=== PATIENT | male | born 1975 | race African-American/Black ===

== ENCOUNTER 2016-07-31 04:03 | Inpatient (IN) | payer MEDICARE, OTHER ==
--- NOTE | ~2016-07-31 | HP ---
History And Physical [address] [place]. [address] NAME: ИВАН ALBA : 73 STATUS : ADM IN [facility]#: [id number] AGE: 41 ADM/REG DATE : 07/31/16 MR#: [id number] REPORT SERV DATE: 07/31/16 DICTATED BY: ALDO KHALIL DATE: 07/31/16 REPORT STATUS : Draft TRANSCRIBED BY: MODL DATE: 07/31/16 DATE OF ADMISSION: 07/31/2016 CHIEF COMPLAINT: Shortness of breath. HISTORY OF PRESENT ILLNESS: This is a 41-year-old gentleman with history of schizophrenia, nonischemic cardiomyopathy with ejection fraction of 15-20%, as well as diabetes and COPD presenting with a shortness of breath. The patient was actually initially brought to the ER with complaints of testicular pain, but it turns out that the patient had significant swelling of his testicles and when he was brought to the ER the patient was in respiratory distress. Upon questioning, the patient reports that he has been swelling up for the past one week and the shortness of breath really started on the way to the ER. The patient is known historically to be poorly compliant with medical therapy in part due to his schizophrenia and even today when I asked the patient reports that he takes his medications whenever he can. In the ER, the patient was found to be afebrile and hemodynamically stable. The patient's breathing actually improved significantly with just 2 L of oxygen per nasal cannula. Initial lab evaluation was all fairly benign except for a BNP of 1130. Chest x-ray showed vascular congestion. Internal Medicine consultation was requested for admission the patient for further evaluation and care. REVIEW OF SYSTEMS: The patient denies any fevers or chills. Also, 14-point review of systems reviewed and negative other than mentioned above. MEDICATIONS: The list is still pending at this time. PAST MEDICAL HISTORY: 1. Nonischemic cardiomyopathy with baseline ejection fraction of 15% to 20%. The patient is status post pacemaker and AICD implantation. The patient follows with Dr. Vazquez. 2. The patient also has moderate to severe diastolic congestive heart failure. 3. COPD. 4. Diabetes type 2. 5. Schizophrenia. PAST SURGICAL HISTORY: AICD and pacemaker implantation. FAMILY HISTORY: Diabetes. SOCIAL HISTORY: The patient smokes occasionally and also consumes alcohol occasionally. The patient otherwise denies any use of illicit drugs. PHYSICAL EXAMINATION: VITAL SIGNS: Temperature 97.7, blood pressure 174/155, pulse 98, respiratory rate of 25, saturating 98% on 2 L of oxygen. History And Physical [address] [address] NAME: ИВАН ALBA : 73 STATUS : ADM IN PAT#: [id number] AGE: 41 ADM/REG DATE : 07/31/16 MR#: [id number] REPORT SERV DATE: 07/31/16 DICTATED BY: ALDO KHALIL DATE: 07/31/16 REPORT STATUS : Draft TRANSCRIBED BY: MATT DATE: 07/31/16 CONSTITUTIONAL: On physical exam, the patient is alert and oriented x3 with no focal neurologic deficits. GENERAL: The patient is awake, does not appear to be in acute distress, and he is cooperative. NECK: No JVD. No lymphadenopathy. Normal thyroid. CHEST: No midline sternotomy scar and no tenderness to palpation. LUNGS: Clear to auscultation bilaterally with fairly normal respiratory effort on 2 L of oxygen per nasal cannula. CARDIOVASCULAR: Regular rate and rhythm with no murmurs, rubs, or gallops, and PMI is nondisplaced. ABDOMEN: Soft, nontender, with active bowel sounds and no organomegaly. EXTREMITIES: The patient has 2+ bilateral lower extremity pitting edema as well as extremity swollen testicles. The patient otherwise has normal distal pulses and no calf tenderness. SKIN: Clean, dry, warm, and intact. LABORATORY DATA: Sodium is 145, potassium 3.6, chloride 110, BUN 21, creatinine 0.92, glucose 154, calcium 8.3, magnesium 1.6. LFTs and lipase are within normal limits. White blood cell count is 7.3, hemoglobin 12.3, platelets 266. INR is 1.5, troponin is 0.07, BNP is 1130.6. Urinalysis is still pending. Chest x-ray is personally interpreted and it shows pulmonary edema. ASSESSMENT: This is a 41-year-old gentleman with history of combined systolic and diastolic congestive heart failure, presenting with a congestive heart failure exacerbation. 1. Congestive heart failure exacerbation, with baseline combined systolic and diastolic congestive heart failure. Baseline ejection fraction is 15-20%. The patient follows with Dr. Vazquez. 2. Schizophrenia affecting the patient's compliance to medication therapy. 3. Diabetes type 2. 4. COPD. PLAN: The plan is to admit the patient under telemetry monitoring. The patient will be given oxygen support and bronchodilator therapy as needed. The patient will be treated with IV Lasix diuresis. In's and out's will be closely monitored as well as daily weights, daily electrolytes, and renal function. I will also go ahead and recheck his echocardiogram this time around. For the rest of stable past medical conditions, including diabetes, schizophrenia, COPD et al, I will continue home medications when the list becomes available. Standard DVT prophylaxis. The patient is full code at this time. [facility]/MATT Aldo Khalil MD / [id number] History And Physical [address] [address] NAME: ИВАН ALBA : 73 STATUS : ADM IN PAT#: [id number] AGE: 41 ADM/REG DATE : 07/31/16 MR#: [id number] REPORT SERV DATE: 07/31/16 DICTATED BY: ALDO KHALIL DATE: 07/31/16 REPORT STATUS : Draft TRANSCRIBED BY: MATT DATE: 07/31/16 CC: Radha Leon Jr., M.D.
--- NOTE | ~2016-07-31 | DS ---
Discharge Summary [facility] [address] [place]. [address] NAME: ИВАН ALBA : 73 STATUS : DIS IN PAT#: [id number] AGE: 41 ADM/REG DATE : 07/31/16 MR#: [id number] REPORT SERV DATE: 08/03/16 DICTATED BY: LORI CARDOZO DATE: 08/02/16 REPORT STATUS : Draft TRANSCRIBED BY: MODJasper DATE: 08/02/16 ADMISSION DATE: 07/31/2016 DISCHARGE DATE: 08/02/2016 DIAGNOSES OF DISCHARGE: 1. Acute on chronic systolic/diastolic congestive heart failure, resolved. 2. Nonischemic cardiomyopathy with ejection fraction around 30% to 35% by echo done during this hospitalization. 3. Hypertension, uncontrolled on admission. 4. Diabetes type 2, insulin dependent. 5. Obesity. 6. Schizophrenia. 7. Medical noncompliance. CONSULTANTS ON THE CASE: None. PROCEDURE DONE DURING THIS HOSPITALIZATION: None. TESTS DONE DURING THIS HOSPITALIZATION: Include 2D echo performed on 08/02/2016 showing improvement in the cardiac ejection fraction around 30% to 35%. Bilateral venous duplex ultrasound of the bilateral lower extremity showing negative bilateral lower extremity Doppler ultrasound. His troponins on 07/31/2016 was 0.07. His TSH was 0.68. His BNP was 1073.7, hemoglobin A1c 7.3, white count was 8.5, hemoglobin 13.3, hematocrit 40.7, and platelets are 299. INR 1.5. His UA has been negative. The chest x-ray that has been performed on 07/31/2016 show congestion with mild interstitial edema and cardiomegaly. HOSPITAL COURSE: This is a very pleasant 41 years old gentleman. 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 He did have a PCI to the mid LAD on the 06/24/2016. He has hypertension. He has had history of diabetes type 2 as well as schizophrenia which has made treating his ischemic cardiomyopathy challenging in the past as well as medical noncompliance, presenting to [facility] and admitted on 07/31/2016 with shortness of breath. The patient does have also history of COPD and tobacco abuse, and he has been admitted initially with CHF exacerbation and anasarca. The patient is known as I said, historically to be a poor compliant with medical treatment, and he says that he takes medications whenever he can. The patient has been admitted to hospitalist service and treated for acute on chronic CHF exacerbation. For further details, please see history and physical of Dr. Long Carlson. The patient has been placed on oxygen. He has been placed on aggressive diuretic treatment. Has been placed on Lasix drip with very good urine output, and he has been started on beta nurys, nitrates, lisinopril, the patient was supposed to be taking at home. He did have an echo which showed significant improvement of the ejection fraction as well as a bilateral lower extremity ultrasound that Discharge Summary [address] [place]. [address] NAME: ИВАН ALBA : 73 STATUS : DIS IN PAT#: [id number] AGE: 41 ADM/REG DATE : 07/31/16 MR#: [id number] REPORT SERV DATE: 08/03/16 DICTATED BY: LORI CARDOZO DATE: 08/02/16 REPORT STATUS : Draft TRANSCRIBED BY: MATT DATE: 08/02/16 ruled out DVT. On 08/02/2016, the patient has been ready for discharge. The patient did not require any oxygen. He has been changed subsequently to oral Demadex. His beta nurys and OMER has been continued as well as his Levemir and metformin. The patient is going to be discharged to home with home health with recommendation to follow up with his primary care provider in one week after discharge and followup appointment with Dr. Vazquez, Cardiology, in one week after discharge. MEDICATIONS AT DISCHARGE: Would include aspirin 325 p.o. daily, Lipitor 40 mg at bedtime, Coreg 25 p.o. daily, Levemir 20 units at bedtime, lisinopril 40 mg p.o. daily, Imdur 20 mg p.o. b.i.d., potassium chloride 20 p.o. b.i.d., Risperdal 2 mg at bedtime, Demadex 20 mg p.o. daily, and resume potassium chloride 20 mEq p.o. b.i.d. as well as metformin 1000 p.o. b.i.d. that has been discussed extensively with the patient. All the questions have been answered in full. I have spent more than 30 minutes at discharging the patient, Fortunato Hobson, medication reconciliation, discharge summary, discharge instructions, written prescriptions as well. CF/MODL Lori Cardozo M.D. / [id number] CC: Radha Huerta Jr., M.D.
[2016-07-31 03:16] LABS: BASOPHILS 0.7 %; BASOPHILS ABSOLUTE 0.05 10/3/uL (0.0-0.16); EOSINOPHILS 3.7 %; EOSINOPHILS ABSOLUTE 0.27 10/3/uL (0.0-0.53); HEMOGLOBIN 12.3 g/dL (13.6-17.8); IMMATURE GRANULOCYTES 0.3 %; IMMATURE GRANULOCYTES ABSOLUTE 0.02 10/3/uL (0.0-0.11); LYMPHOCYTES 26.4 %; LYMPHOCYTES ABSOLUTE 1.93 10/3/uL (0.67-4.30); MANUAL DIFF NO %; MEAN CORPUS HGB CONC 32.4 g/dL (32.0-36.0); MEAN CORPUSCULAR HEMOGLOB 25.8 pg (26.0-34.0); MEAN CORPUSCULAR VOLUME 79.8 fL (80-100); MEAN PLATELET VOLUME 9.3 fL (9.2-13.0); MONOCYTES 11.4 %; MONOCYTES ABSOLUTE 0.83 10/3/uL (0.21-1.20); NEUTROPHILS 57.5 %; NEUTROPHILS ABSOLUTE 4.21 10/3/uL (2.02-8.40); PLATELET COUNT 266 10/3/uL (150-400); RBC DISTRIBUTION WIDTH 18.3 % (12.0-16.0); RED CELL COUNT 4.76 10/6/uL (4.7-6.1); WHITE BLOOD CELLS 7.3 10/3/uL (4.5-10.5)
[2016-07-31 03:23] LABS: INTERNATIONAL NORMAL RATI 1.5 UNITS (-); PARTIAL THROMBO TIME 34.3 SEC (22.5-37.2); PROTIME (NOT ORD) 17.6 SEC (12.0-14.5)
[2016-07-31 03:32] LABS: A/G RATIO 0.8 (0.7-1.9); ALBUMIN 2.9 G/DL (3.5-5.0); ALKALINE PHOSPHATASE 155 U/L (45-117); BUN (BLOOD UREA NITROGEN) 21 MG/DL (6-23); CALCIUM, SERUM 8.3 MG/DL (8.5-10.4); CHLORIDE, SERUM 110 MMOL/L (96-112); CO2 (CARBON DIOXIDE) 27 MMOL/L (24-34); CREATININE 0.92 MG/DL (0.70-1.30); GFR AFRICAN AMERICAN 118 ML/MIN (>=60); GFR NON AFRICAN AMERICAN 102 ML/MIN (>=60); GLOBULIN 3.8 G/DL (2.5-4.1); GLUCOSE, SERUM 154 MG/DL (60-99); POTASSIUM, SERUM 3.6 MMOL/L (3.5-5.3); SGOT(AST) 30 U/L (5-40); SGPT(ALT) 29 U/L (5-65); SODIUM, SERUM 145 MMOL/L (135-148); TOTAL PROTEIN 6.7 G/DL (6.0-8.5)
[2016-07-31 03:47] LABS: TROPONIN I 0.07 NG/ML (<0.05)
[~2016-07-31 04:03] MED LIST: *UNABLE1; ASA5GR PO; CRESTOR PO; GLUCOPHAGE1000 MG PO; HYDROCHLOROT25 MG PO; L20 PO; LEVEMFLXPN SC; LIPITOR40 PO; LISINOPRIL PO; LOP25 PO; METFORMIN PO; NATURE'S OPH; POTASSIUM PO; PRIN10 PO; RISP2 PO; ZESTRIL40 MG PO; [UNRECOGNIZED DRUG - REMARK]
[2016-07-31 04:38] LABS: ASCORBIC ACID (UR NOT ORDER) 20 (NEG); BILIRUBIN, URINE NEGATIVE (NEG); ER URINALYSIS TAT 1 Hrs 27 Mins; KETONE, URINE NEGATIVE (NEG); LEUKOCYTE ESTERASE(NOT OR NEG (NEG); NITRITE (URINE) NEG (NEG); WBC (NOT ORDERED) (RFLEX) 4 (0-5)
[2016-07-31 12:31] LABS: BASOPHILS 0.8 %; BASOPHILS ABSOLUTE 0.06 10/3/uL (0.0-0.16); EOSINOPHILS 3.6 %; EOSINOPHILS ABSOLUTE 0.27 10/3/uL (0.0-0.53); HEMATOCRIT 37.3 % (40.0-51.0); HEMOGLOBIN 11.8 g/dL (13.6-17.8); IMMATURE GRANULOCYTES 0.1 %; IMMATURE GRANULOCYTES ABSOLUTE 0.01 10/3/uL (0.0-0.11); LYMPHOCYTES 31.6 %; LYMPHOCYTES ABSOLUTE 2.34 10/3/uL (0.67-4.30); MEAN CORPUS HGB CONC 31.6 g/dL (32.0-36.0); MEAN CORPUSCULAR HEMOGLOB 25.1 pg (26.0-34.0); MEAN CORPUSCULAR VOLUME 79.2 fL (80-100); MEAN PLATELET VOLUME 9.3 fL (9.2-13.0); MONOCYTES 10.8 %; NEUTROPHILS 53.1 %; NEUTROPHILS ABSOLUTE 3.92 10/3/uL (2.02-8.40); PLATELET COUNT 272 10/3/uL (150-400); RBC DISTRIBUTION WIDTH 18.5 % (12.0-16.0); RED CELL COUNT 4.71 10/6/uL (4.7-6.1); WHITE BLOOD CELLS 7.4 10/3/uL (4.5-10.5)
[2016-07-31 12:32] LABS: MANUAL DIFF NO %
[2016-07-31 12:51] LABS: BUN (BLOOD UREA NITROGEN) 21 MG/DL (6-23); CALCIUM, SERUM 8.1 MG/DL (8.5-10.4); CHLORIDE, SERUM 107 MMOL/L (96-112); CO2 (CARBON DIOXIDE) 30 MMOL/L (24-34); CREATININE 0.87 MG/DL (0.70-1.30); GFR AFRICAN AMERICAN 123 ML/MIN (>=60); GFR NON AFRICAN AMERICAN 106 ML/MIN (>=60); GLUCOSE, SERUM 124 MG/DL (60-99); POTASSIUM, SERUM 3.5 MMOL/L (3.5-5.3); SODIUM, SERUM 143 MMOL/L (135-148)
[2016-07-31 12:52] LABS: TROPONIN I 0.07 NG/ML (<0.05); ULTRASENSITIVE TSH 0.444 MCIU/ML (0.358-3.740)
[2016-07-31 12:56] LABS: B NATRIURETIC PEPTIDE (BNP) 1073.7 PG/ML (< 100.0)
[2016-08-01 06:03] LABS: BASOPHILS 0.4 %; BASOPHILS ABSOLUTE 0.03 10/3/uL (0.0-0.16); EOSINOPHILS 4.6 %; EOSINOPHILS ABSOLUTE 0.31 10/3/uL (0.0-0.53); HEMATOCRIT 39.3 % (40.0-51.0); HEMOGLOBIN 12.8 g/dL (13.6-17.8); IMMATURE GRANULOCYTES 0.1 %; IMMATURE GRANULOCYTES ABSOLUTE 0.01 10/3/uL (0.0-0.11); LYMPHOCYTES 27.4 %; LYMPHOCYTES ABSOLUTE 1.86 10/3/uL (0.67-4.30); MEAN CORPUS HGB CONC 32.6 g/dL (32.0-36.0); MEAN CORPUSCULAR HEMOGLOB 25.7 pg (26.0-34.0); MEAN CORPUSCULAR VOLUME 78.9 fL (80-100); MONOCYTES 10.3 %; NEUTROPHILS 57.2 %; NEUTROPHILS ABSOLUTE 3.87 10/3/uL (2.02-8.40); PLATELET COUNT 258 10/3/uL (150-400); RBC DISTRIBUTION WIDTH 18.3 % (12.0-16.0); RED CELL COUNT 4.98 10/6/uL (4.7-6.1); WHITE BLOOD CELLS 6.8 10/3/uL (4.5-10.5)
[2016-08-01 06:05] LABS: MANUAL DIFF NO %
[2016-08-01 06:27] LABS: % IRON SAT 8 % (20-50); BUN (BLOOD UREA NITROGEN) 18 MG/DL (6-23); CALCIUM, SERUM 8.4 MG/DL (8.5-10.4); CHLORIDE, SERUM 101 MMOL/L (96-112); CO2 (CARBON DIOXIDE) 34 MMOL/L (24-34); CREATININE 0.89 MG/DL (0.70-1.30); FERRITIN 66 NG/ML (26-388); GFR AFRICAN AMERICAN 122 ML/MIN (>=60); GFR NON AFRICAN AMERICAN 105 ML/MIN (>=60); IRON BINDING CAPACITY 349 MCG/DL (250-450); IRON, SERUM 28 MCG/DL (35-150); POTASSIUM, SERUM 3.4 MMOL/L (3.5-5.3); SODIUM, SERUM 142 MMOL/L (135-148)
[2016-08-01 06:28] LABS: GLUCOSE, SERUM 86 MG/DL (60-99); ULTRASENSITIVE TSH 0.681 MCIU/ML (0.358-3.740)
[2016-08-01 09:02] LABS: GLYCOHEMOGLOBIN (HbA1c) 7.3 % (4.7-6.1)
[2016-08-02 05:25] LABS: BASOPHILS 0.5 %; BASOPHILS ABSOLUTE 0.04 10/3/uL (0.0-0.16); EOSINOPHILS 4.9 %; EOSINOPHILS ABSOLUTE 0.42 10/3/uL (0.0-0.53); HEMATOCRIT 40.7 % (40.0-51.0); HEMOGLOBIN 13.3 g/dL (13.6-17.8); IMMATURE GRANULOCYTES 0.2 %; IMMATURE GRANULOCYTES ABSOLUTE 0.02 10/3/uL (0.0-0.11); LYMPHOCYTES 23.3 %; LYMPHOCYTES ABSOLUTE 1.99 10/3/uL (0.67-4.30); MANUAL DIFF NO %; MEAN CORPUS HGB CONC 32.7 g/dL (32.0-36.0); MEAN CORPUSCULAR HEMOGLOB 25.9 pg (26.0-34.0); MEAN CORPUSCULAR VOLUME 79.2 fL (80-100); MEAN PLATELET VOLUME 9.5 fL (9.2-13.0); MONOCYTES 10.6 %; NEUTROPHILS 60.5 %; NEUTROPHILS ABSOLUTE 5.16 10/3/uL (2.02-8.40); PLATELET COUNT 299 10/3/uL (150-400); RBC DISTRIBUTION WIDTH 18.2 % (12.0-16.0); RED CELL COUNT 5.14 10/6/uL (4.7-6.1); WHITE BLOOD CELLS 8.5 10/3/uL (4.5-10.5)
[2016-08-02 05:33] LABS: BUN (BLOOD UREA NITROGEN) 24 MG/DL (6-23); CALCIUM, SERUM 9.1 MG/DL (8.5-10.4); CHLORIDE, SERUM 96 MMOL/L (96-112); CO2 (CARBON DIOXIDE) 39 MMOL/L (24-34); CREATININE 0.96 MG/DL (0.70-1.30); GFR AFRICAN AMERICAN 113 ML/MIN (>=60); GFR NON AFRICAN AMERICAN 97 ML/MIN (>=60); GLUCOSE, SERUM 216 MG/DL (60-99); POTASSIUM, SERUM 3.6 MMOL/L (3.5-5.3); SODIUM, SERUM 141 MMOL/L (135-148)
[2016-08-02] MEDS ORDERED: COREG25 PO (12:02)
[2016-08-02] MEDS ORDERED: LISINOPRIL40 MG PO (12:03)
[2016-08-02] MEDS ORDERED: IMDUR30 PO (12:04)
[2016-08-02] MEDS ORDERED: DEMA20 PO (12:05)
[2016-08-02] MEDS ORDERED: KDUR20 PO (12:05)
[2017-01-02] MEDS ORDERED: L20 PO (12:25)
[2017-01-02] MEDS ORDERED: MONOKET20 PO (12:26)
[2017-01-05] MEDS ORDERED: COREG6 PO (12:50)
[2017-01-05] MEDS ORDERED: PRIN10 PO (12:51)
== END 2016-08-02 18:44 | disposition home health service (06) | DRG 292 ==
LOC: ER 04:03 → 5NO 04:29
PROVIDERS: Internal Medicine; Nurse Practitioner; Nurse Practitioner Family
DX: I11.0 Hypertensive heart disease with heart failure (principal); Z68.42 Body mass index [BMI] 45.0-49.9, adult; I50.43 Acute on chronic combined systolic (congestive) and diastolic (congestive) heart failure; E11.9 Type 2 diabetes mellitus without complications; Z79.4 Long term (current) use of insulin; E66.9 Obesity, unspecified; Z91.14 Patient's other noncompliance with medication regimen; F20.9 Schizophrenia, unspecified; J44.9 Chronic obstructive pulmonary disease, unspecified; F17.210 Nicotine dependence, cigarettes, uncomplicated; E88.09 Other disorders of plasma-protein metabolism, not elsewhere classified; Z23 Encounter for immunization
CPT/HCPCS: 71010; 80048; 80053; 81001; 82728; 82962; 83036; 83540; 83550; 83690; 83735; 83880; 84443; 84484; 85025; 85610; 85730; 90686; 93005; 93306; 93970; 94640; 96374; 99285; A9270-GY; G0008; J1940

== ENCOUNTER 2016-09-07 23:58 | Emergency (ER) | payer MEDICARE, OTHER ==
[~2016-09-07 23:58] MED LIST changes: +COREG25 PO; +DEMA20 PO; +IMDUR30 PO; +KDUR20 PO; +LISINOPRIL40 MG PO
[2016-09-08 01:32] LABS: BASOPHILS 0.8 %; BASOPHILS ABSOLUTE 0.06 10/3/uL (0.0-0.16); EOSINOPHILS 4.4 %; EOSINOPHILS ABSOLUTE 0.34 10/3/uL (0.0-0.53); ER CBC TAT 0 Hrs 15 Mins; HEMOGLOBIN 11.5 g/dL (13.6-17.8); IMMATURE GRANULOCYTES 0.4 %; IMMATURE GRANULOCYTES ABSOLUTE 0.03 10/3/uL (0.0-0.11); LYMPHOCYTES 18.2 %; LYMPHOCYTES ABSOLUTE 1.41 10/3/uL (0.67-4.30); MANUAL DIFF NO %; MEAN CORPUS HGB CONC 31.9 g/dL (32.0-36.0); MEAN CORPUSCULAR HEMOGLOB 25.2 pg (26.0-34.0); MEAN CORPUSCULAR VOLUME 78.9 fL (80-100); MEAN PLATELET VOLUME 8.7 fL (9.2-13.0); MONOCYTES 14.2 %; PLATELET COUNT 244 10/3/uL (150-400); RBC DISTRIBUTION WIDTH 17.5 % (12.0-16.0); RED CELL COUNT 4.56 10/6/uL (4.7-6.1); WHITE BLOOD CELLS 7.7 10/3/uL (4.5-10.5)
[2016-09-08] MEDS ORDERED: VENTOLIN HFA INH (01:50)
[2016-09-08] MEDS ORDERED: LISINOPRIL PO (01:54)
[2016-09-08] MEDS ORDERED: COREG (01:57)
[2016-09-08 01:59] LABS: CALCIUM, SERUM 8.3 MG/DL (8.5-10.4); CHLORIDE, SERUM 109 MMOL/L (96-112); CREATININE 0.96 MG/DL (0.70-1.30); GFR AFRICAN AMERICAN 113 ML/MIN (>=60); GFR NON AFRICAN AMERICAN 97 ML/MIN (>=60); POTASSIUM, SERUM 3.5 MMOL/L (3.5-5.3); SODIUM, SERUM 145 MMOL/L (135-148)
[2016-09-08] MEDS ORDERED: L20 PO (01:59)
[2016-09-08] MEDS ORDERED: ASPIRIN PO (02:00)
[2016-09-08 02:01] LABS: BUN (BLOOD UREA NITROGEN) 19 MG/DL (6-23); CO2 (CARBON DIOXIDE) 30 MMOL/L (24-34); GLUCOSE, SERUM 94 MG/DL (60-99)
[2016-09-08] MEDS ORDERED: HYDRALAZINE (02:01)
[2016-09-08] MEDS ORDERED: NOVOLOG SC (02:02)
[2016-09-08 02:29] LABS: ASCORBIC ACID (UR NOT ORDER) NEG (NEG); BILIRUBIN, URINE NEGATIVE (NEG); ER URINALYSIS TAT 0 Hrs 00 Mins; KETONE, URINE NEGATIVE (NEG); LEUKOCYTE ESTERASE(NOT OR NEG (NEG); NITRITE (URINE) NEG (NEG); WBC (NOT ORDERED) (RFLEX) < 1 (0-5)
[2017-01-02] MEDS ORDERED: L20 PO (12:25)
[2017-01-02] MEDS ORDERED: MONOKET20 PO (12:26)
[2017-01-05] MEDS ORDERED: COREG6 PO (12:50)
[2017-01-05] MEDS ORDERED: PRIN10 PO (12:51)
== END 2016-09-08 02:55 | disposition home or self-care (01) ==
LOC: ER 23:58
PROVIDERS: Emergency Medicine
DX: I11.0 Hypertensive heart disease with heart failure (principal); I50.9 Heart failure, unspecified; J44.9 Chronic obstructive pulmonary disease, unspecified; F17.200 Nicotine dependence, unspecified, uncomplicated; F20.9 Schizophrenia, unspecified; Z95.810 Presence of automatic (implantable) cardiac defibrillator; Z79.899 Other long term (current) drug therapy
CPT/HCPCS: 71010; 80048; 81001; 83880; 85025; 99285; J1940

== ENCOUNTER 2016-09-08 09:59 | Emergency (ER) | payer MEDICARE, OTHER ==
[~2016-09-08 09:59] MED LIST changes: +ASPIRIN PO; +COREG; +HYDRALAZINE; +NOVOLOG SC; +VENTOLIN HFA INH
[2017-01-02] MEDS ORDERED: L20 PO (12:25)
[2017-01-02] MEDS ORDERED: MONOKET20 PO (12:26)
[2017-01-05] MEDS ORDERED: COREG6 PO (12:50)
[2017-01-05] MEDS ORDERED: PRIN10 PO (12:51)
== END 2016-09-08 11:41 | disposition home or self-care (01) ==
LOC: ER 09:59
DX: N50.89 Other specified disorders of the male genital organs (principal); I11.0 Hypertensive heart disease with heart failure; I50.9 Heart failure, unspecified; E11.9 Type 2 diabetes mellitus without complications; F20.9 Schizophrenia, unspecified; Z79.899 Other long term (current) drug therapy
CPT/HCPCS: 76870; 99283; A9270-GY

== ENCOUNTER 2016-10-05 15:32 | Inpatient (IN) | payer MEDICARE, OTHER ==
--- NOTE | ~2016-10-05 | HP ---
History And Physical [address] [place]. [address] NAME: ИВАН ALBA : 73 STATUS : ADM IN [facility]#: [id number] AGE: 41 ADM/REG DATE : 10/05/16 MR#: [id number] REPORT SERV DATE: 10/06/16 DICTATED BY: ALDO KHALIL DATE: 10/05/16 REPORT STATUS : Draft TRANSCRIBED BY: MODL DATE: 10/05/16 DATE OF ADMISSION: 10/05/2016 CHIEF COMPLAINT: Increasing edema and shortness of breath. HISTORY OF PRESENT ILLNESS: This is a 41-year-old gentleman with a known history of systolic and diastolic congestive heart failure as well as COPD, presenting with increasing peripheral edema and shortness of breath. Please note, the patient also has a history of schizophrenia and he is known to be noncompliant to medical therapy. Also with the schizophrenia, the patient is a rather poor historian. The patient reports that he had some kind of trouble following up with his PCP, where he was not able to get appointments on time. As a result, the patient ran out of his medications and he has been off meds for the past two weeks. The patient reports that he has been compliant with his medications up until about two weeks ago. Over the past two weeks, the patient had worsening peripheral edema and shortness of breath. The patient decided to come to the ER for further evaluation and care. Of note, it appears that the patient has had frequent ER visitations and thus I am not sure if the patient has developed this peripheral edema and shortness of breath rather acutely or if it is just one of his episodes. In the ER, the patient was found to be quite hypertensive with blood pressures 160s/100s. The patient was otherwise actually fairly stable. Initial lab evaluation was fairly benign, but overall the patient was quite edematous to the point of anasarca and his chest x-ray confirmed quite extensive congestive heart failure changes. Internal Medicine consultation was requested for admission of the patient for further evaluation and care. REVIEW OF SYSTEMS: The patient denies any fevers or chills. Also, 14-point review of systems reviewed and negative other than mentioned above. MEDICATIONS: The list is still pending at this time. PAST MEDICAL HISTORY: 1. Baseline systolic congestive heart failure with ejection fraction of 30% to 35%, nonischemic. The patient follows with Dr. Vazquez and he has a pacemaker and AICD. 2. The patient also had moderate to severe diastolic congestive heart failure. 3. Hypertension. 4. Insulin-dependent diabetes, type 2. 5. Chronic obstructive pulmonary disease. 6. Schizophrenia. 7. Known to be noncompliant in part due to the schizophrenia. PAST SURGICAL HISTORY: 1. AICD. 2. Pacemaker implantation. FAMILY HISTORY: Diabetes. History And Physical [address] [address] NAME: ИВАН ALBA : 73 STATUS : ADM IN PAT#: [id number] AGE: 41 ADM/REG DATE : 10/05/16 MR#: [id number] REPORT SERV DATE: 10/06/16 DICTATED BY: ALDO KHALIL DATE: 10/05/16 REPORT STATUS : Draft TRANSCRIBED BY: MATT DATE: 10/05/16 SOCIAL HISTORY: The patient smokes and drinks occasionally, but not on daily basis. The patient denies use of any illicit drugs. The patient lives at home with his mother, niece, and nephew. The patient is alone here in the ER. PHYSICAL EXAMINATION: VITAL SIGNS: Temperature 98.6, blood pressure 158/100, pulse 101, respiratory rate is 16, and saturating 95% on room air. NEUROLOGIC: The patient is alert and oriented x3 with no focal neurologic deficits. GENERAL: The patient is awake, does not appear to be in acute distress, and he is cooperative. The patient overall has anasarca appearance with significant scrotal edema. NECK: No JVD. No lymphadenopathy. Normal thyroid. CHEST: No midline sternotomy scar and no tenderness to palpation. LUNGS: Clear to auscultation bilaterally with normal respiratory effort on room air. The patient does seem to have decreased lung volumes. CARDIOVASCULAR: Slightly tachycardic with no murmurs, rubs, or gallops, and PMI is nondisplaced. ABDOMEN: Soft, nontender, with active bowel sounds and no organomegaly. EXTREMITIES: No edema. Normal distal pulses. No calf tenderness. SKIN: Clean, dry, warm, and intact. LABORATORY DATA: Sodium is 142, potassium 3.2, chloride 105, BUN 17, creatinine 0.98, glucose 130, calcium 8.3, magnesium 1.5. White blood cell count is 7.3, hemoglobin 11.1, platelets 291. INR is 1.6, troponin is 0.09, BNP is 972.8. Chest x-ray is personally interpreted and it shows extensive congestive heart failure changes. ASSESSMENT: This is a 41-year-old gentleman with a known history of systolic congestive heart failure as well as diastolic congestive heart failure, presenting with a congestive heart failure exacerbation with anasarca. 1. Anasarca secondary to acute on chronic systolic and diastolic congestive heart failure exacerbation. The patient has nonischemic cardiomyopathy at baseline with ejection fraction of 30% to 35%. 2. Hypertension. 3. Chronic obstructive pulmonary disease. 4. Insulin-dependent diabetes type 2. 5. Schizophrenia. 6. Noncompliance, related to the schizophrenia. PLAN: My plan is to admit the patient under telemetry monitoring. The patient will be treated with aggressive IV Lasix diuresis. In's and out's will be closely monitored as well as daily weights and electrolytes as well as renal function. As the patient had a fairly recent echocardiogram couple of months ago, I will hold off on ordering a repeat echocardiogram. The patient will also be treated with cardiac supportive care to include oxygen, nitrogen, aspirin, and morphine as well as OMER inhibitor and statins. For his hypertension, the patient will also be given antihypertensives as needed and for diabetes, the patient will be placed on sliding scale. For the rest of the stable past medical conditions including schizophrenia, COPD and et al, I will continue home medications. History And Physical [address] [address] NAME: ИВАН ALBA : 73 STATUS : ADM IN PAT#: [id number] AGE: 41 ADM/REG DATE : 10/05/16 MR#: [id number] REPORT SERV DATE: 10/06/16 DICTATED BY: ALDO KHALIL DATE: 10/05/16 REPORT STATUS : Draft TRANSCRIBED BY: MATT DATE: 10/05/16 Standard DVT prophylaxis. The patient is full code at this time. [facility]/MATT Aldo Khalil MD / [id number] CC: Diana Bowers M.D.
--- NOTE | ~2016-10-05 | DS ---
Discharge Summary [facility] [address] [place]. [address] NAME: ИВАН ALBA : 73 STATUS : DIS IN PAT#: [id number] AGE: 41 ADM/REG DATE : 10/05/16 MR#: [id number] REPORT SERV DATE: 10/08/16 DICTATED BY: ALDO ALVES DATE: 10/07/16 REPORT STATUS : Draft TRANSCRIBED BY: MODL DATE: 10/07/16 ADMISSION DATE: 10/05/2016 DISCHARGE DATE: 10/07/2016 DISCHARGE DIAGNOSES: 1. Anasarca secondary to acute on chronic systolic and diastolic congestive heart failure exacerbation. 2. Baseline nonischemic cardiomyopathy with ejection fraction of 30% to 35%. 3. Hypertension. 4. Chronic obstructive pulmonary disease. 5. Insulin-dependent diabetes type 2. 6. Schizophrenia. 7. Noncompliance, related to schizophrenia. CONSULTS: None. PROCEDURES: None. HOSPITAL COURSE: This is a 41-year-old gentleman, who is well known to our hospitalist service for his frequent hospitalizations, who was admitted to the hospital with acute on chronic systolic congestive heart failure exacerbation. For details, please refer to my own H and P. In summary, the patient was admitted and was given aggressive IV Lasix diuresis with good response. The patient was quite stable even on the day of admission, despite the anasarca, being able to maintain stable respiratory vitals on room air. It simply took a couple of days of diuresis to get enough fluids off him. I have diuresed total of 3000 mL. It was felt that the patient would fare well returning to p.o. diuretics. The patient's main reason for admission was noncompliance, the patient has not been taking any of his diuretics or cardiac medications at home for unclear reasons. The patient will be scheduled for a close outpatient followup with his PCP, and I am also giving him enough scripts for all of his baseline medications enough to last him three months in case he has more difficult time following up with his PCP. Again, otherwise, the patient has remained hemodynamically stable throughout the hospital stay. The patient is now being discharged home with close outpatient followup plans. DISPOSITION: Home. MEDICATIONS: No changes, except for increased Lasix to 40 mg p.o. b.i.d., this dose of Lasix should be titrated down back to perhaps 40 mg once daily once the patient loses more fluid. FOLLOWUP: Please follow up with PCP in the next one to two weeks. A total of 40 minutes spent in coordinating this patient's discharge, a lot of which included counseling. Discharge Summary [address] [place]. [address] NAME: ИВАН ALBA : 73 STATUS : DIS IN PAT#: [id number] AGE: 41 ADM/REG DATE : 10/05/16 MR#: [id number] REPORT SERV DATE: 10/08/16 DICTATED BY: ALDO ALVES DATE: 10/07/16 REPORT STATUS : Draft TRANSCRIBED BY: MATT DATE: 10/07/16 [facility]/MATT Aldo Alves MD / [id number] CC: Aldo Alves MD
[2016-10-05 14:44] LABS: BASOPHILS ABSOLUTE 0.07 10/3/uL (0.0-0.16); EOSINOPHILS ABSOLUTE 0.22 10/3/uL (0.0-0.53); HEMATOCRIT 34.4 % (40.0-51.0); HEMOGLOBIN 11.1 g/dL (13.6-17.8); IMMATURE GRANULOCYTES 0.3 %; IMMATURE GRANULOCYTES ABSOLUTE 0.02 10/3/uL (0.0-0.11); LYMPHOCYTES 19.5 %; LYMPHOCYTES ABSOLUTE 1.43 10/3/uL (0.67-4.30); MANUAL DIFF NO %; MEAN CORPUS HGB CONC 32.3 g/dL (32.0-36.0); MEAN CORPUSCULAR HEMOGLOB 24.7 pg (26.0-34.0); MEAN CORPUSCULAR VOLUME 76.4 fL (80-100); MEAN PLATELET VOLUME 8.7 fL (9.2-13.0); MONOCYTES 17.5 %; MONOCYTES ABSOLUTE 1.28 10/3/uL (0.21-1.20); NEUTROPHILS 58.7 %; NEUTROPHILS ABSOLUTE 4.31 10/3/uL (2.02-8.40); PLATELET COUNT 291 10/3/uL (150-400); RBC DISTRIBUTION WIDTH 17.2 % (12.0-16.0); WHITE BLOOD CELLS 7.3 10/3/uL (4.5-10.5)
[2016-10-05 14:53] LABS: INTERNATIONAL NORMAL RATI 1.6 UNITS (-); PARTIAL THROMBO TIME 38.1 SEC (22.5-37.2); PROTIME (NOT ORD) 19.1 SEC (12.0-14.5)
[2016-10-05 15:00] LABS: BUN (BLOOD UREA NITROGEN) 17 MG/DL (6-23); CALCIUM, SERUM 8.3 MG/DL (8.5-10.4); CHLORIDE, SERUM 105 MMOL/L (96-112); CO2 (CARBON DIOXIDE) 29 MMOL/L (24-34); CREATININE 0.98 MG/DL (0.70-1.30); GFR AFRICAN AMERICAN 110 ML/MIN (>=60); GFR NON AFRICAN AMERICAN 95 ML/MIN (>=60); POTASSIUM, SERUM 3.2 MMOL/L (3.5-5.3); SODIUM, SERUM 142 MMOL/L (135-148)
[2016-10-05 15:03] LABS: GLUCOSE, SERUM 130 MG/DL (60-99)
[2016-10-05 15:04] LABS: CHEST PAIN PROFILE TAT 0 Hrs 24 Mins; TROPONIN I 0.09 NG/ML (<0.05)
[2016-10-05] MEDS ORDERED: LEVEMFLXPN SC (17:24)
[2016-10-05] MEDS ORDERED: L40 PO (17:24)
[2016-10-05] MEDS ORDERED: VENTOLIN HFA INH (17:25)
[2016-10-05] MEDS ORDERED: KLOR-CON M2020 MEQ PO (17:25)
[2016-10-05] MEDS ORDERED: LIPITOR20 PO (17:26)
[2016-10-05] MEDS ORDERED: LISINOPRIL40 MG PO (17:27)
[2016-10-05] MEDS ORDERED: APRES25 PO (17:27)
[2016-10-05] MEDS ORDERED: GLUCOPHAGE1000 MG PO (17:28)
[2016-10-05] MEDS ORDERED: ASA5GR PO (17:29)
[2016-10-05] MEDS ORDERED: RISP2 PO (17:29)
[2016-10-05 21:09] LABS: ALLENS TEST Pos; BE (BASE EXCESS) 3.5 MEQ/L (0 +/- 2.5); CARBOXYHEMOGLOBIN 2.1 % (0-3); HCO3 (ACTUAL BICARBONATE) 26.7 MEQ/L (23-27); HEMOBLOGIN CONTENT 11.9 G/DL (14-18); INSTRUMENT SERIAL # 8087; METHEMOGLOBIN 0.3 % (0-3); O2 CONTENT 15.6 VOL% (18-24); PCO2 (CO2 TENSION) 36 MMHG (35-45); PO2 (O2 TENSION) 77 MMHG (79-93); SAMPLE Arterial; pH 7.49 (7.37-7.43)
[2016-10-06 04:51] LABS: BASOPHILS 0.9 %; BASOPHILS ABSOLUTE 0.07 10/3/uL (0.0-0.16); EOSINOPHILS 4.4 %; EOSINOPHILS ABSOLUTE 0.34 10/3/uL (0.0-0.53); HEMATOCRIT 36.6 % (40.0-51.0); HEMOGLOBIN 11.9 g/dL (13.6-17.8); IMMATURE GRANULOCYTES 0.3 %; IMMATURE GRANULOCYTES ABSOLUTE 0.02 10/3/uL (0.0-0.11); LYMPHOCYTES 26.9 %; LYMPHOCYTES ABSOLUTE 2.06 10/3/uL (0.67-4.30); MEAN CORPUS HGB CONC 32.5 g/dL (32.0-36.0); MEAN CORPUSCULAR VOLUME 76.9 fL (80-100); MONOCYTES 10.6 %; MONOCYTES ABSOLUTE 0.81 10/3/uL (0.21-1.20); NEUTROPHILS 56.9 %; NEUTROPHILS ABSOLUTE 4.36 10/3/uL (2.02-8.40); PLATELET COUNT 312 10/3/uL (150-400); RBC DISTRIBUTION WIDTH 17.3 % (12.0-16.0); RED CELL COUNT 4.76 10/6/uL (4.7-6.1); WHITE BLOOD CELLS 7.7 10/3/uL (4.5-10.5)
[2016-10-06 04:53] LABS: MANUAL DIFF NO %
[2016-10-06 05:09] LABS: BUN (BLOOD UREA NITROGEN) 20 MG/DL (6-23); CALCIUM, SERUM 8.6 MG/DL (8.5-10.4); CHLORIDE, SERUM 105 MMOL/L (96-112); CO2 (CARBON DIOXIDE) 29 MMOL/L (24-34); CREATININE 0.92 MG/DL (0.70-1.30); GFR AFRICAN AMERICAN 118 ML/MIN (>=60); GFR NON AFRICAN AMERICAN 102 ML/MIN (>=60); GLUCOSE, SERUM 82 MG/DL (60-99); POTASSIUM, SERUM 3.3 MMOL/L (3.5-5.3); SODIUM, SERUM 142 MMOL/L (135-148)
[2016-10-06 05:10] LABS: TROPONIN I 0.08 NG/ML (<0.05)
[2016-10-07 06:04] LABS: BASOPHILS 0.5 %; BASOPHILS ABSOLUTE 0.04 10/3/uL (0.0-0.16); EOSINOPHILS 5.1 %; EOSINOPHILS ABSOLUTE 0.39 10/3/uL (0.0-0.53); HEMATOCRIT 33.7 % (40.0-51.0); HEMOGLOBIN 10.9 g/dL (13.6-17.8); IMMATURE GRANULOCYTES 0.3 %; IMMATURE GRANULOCYTES ABSOLUTE 0.02 10/3/uL (0.0-0.11); LYMPHOCYTES 21.7 %; LYMPHOCYTES ABSOLUTE 1.65 10/3/uL (0.67-4.30); MEAN CORPUS HGB CONC 32.3 g/dL (32.0-36.0); MEAN CORPUSCULAR HEMOGLOB 24.5 pg (26.0-34.0); MEAN CORPUSCULAR VOLUME 75.9 fL (80-100); MEAN PLATELET VOLUME 9.3 fL (9.2-13.0); MONOCYTES 12.1 %; MONOCYTES ABSOLUTE 0.92 10/3/uL (0.21-1.20); NEUTROPHILS 60.3 %; NEUTROPHILS ABSOLUTE 4.59 10/3/uL (2.02-8.40); PLATELET COUNT 291 10/3/uL (150-400); RBC DISTRIBUTION WIDTH 17.3 % (12.0-16.0); RED CELL COUNT 4.44 10/6/uL (4.7-6.1); WHITE BLOOD CELLS 7.6 10/3/uL (4.5-10.5)
[2016-10-07 06:05] LABS: MANUAL DIFF NO %
[2016-10-07 06:06] LABS: BUN (BLOOD UREA NITROGEN) 23 MG/DL (6-23); CALCIUM, SERUM 8.5 MG/DL (8.5-10.4); CHLORIDE, SERUM 104 MMOL/L (96-112); CO2 (CARBON DIOXIDE) 33 MMOL/L (24-34); CREATININE 0.94 MG/DL (0.70-1.30); GFR AFRICAN AMERICAN 115 ML/MIN (>=60); GFR NON AFRICAN AMERICAN 100 ML/MIN (>=60); POTASSIUM, SERUM 3.5 MMOL/L (3.5-5.3); SODIUM, SERUM 143 MMOL/L (135-148)
[2016-10-07 06:11] LABS: GLUCOSE, SERUM 103 MG/DL (60-99)
[2016-10-07] MEDS ORDERED: NEUR300 PO (10:11)
[2016-10-07] MEDS ORDERED: HYDROCHLOROT25 MG PO (10:55)
[2017-01-02] MEDS ORDERED: L20 PO (12:25)
[2017-01-02] MEDS ORDERED: MONOKET20 PO (12:26)
[2017-01-05] MEDS ORDERED: COREG6 PO (12:50)
[2017-01-05] MEDS ORDERED: PRIN10 PO (12:51)
== END 2016-10-07 13:51 | disposition home or self-care (01) | DRG 293 ==
LOC: ER 15:32 → 5NO 16:57
PROVIDERS: Internal Medicine; Internal Medicine Cardiovascular Disease; Nurse Practitioner
DX: I11.0 Hypertensive heart disease with heart failure (principal); I42.8 Other cardiomyopathies; F20.9 Schizophrenia, unspecified; I50.43 Acute on chronic combined systolic (congestive) and diastolic (congestive) heart failure; J44.9 Chronic obstructive pulmonary disease, unspecified; E11.9 Type 2 diabetes mellitus without complications; Z95.810 Presence of automatic (implantable) cardiac defibrillator; F17.210 Nicotine dependence, cigarettes, uncomplicated; Z79.4 Long term (current) use of insulin; Z91.14 Patient's other noncompliance with medication regimen
CPT/HCPCS: 36600; 71010; 80048; 82805; 82962; 83735; 83880; 84132; 84484; 85025; 85610; 85730; 93005; 94640; 96374; 99285; A9270-GY

== ENCOUNTER 2016-10-23 19:16 | Inpatient (IN) | payer MEDICARE, OTHER ==
--- NOTE | ~2016-10-23 | HP ---
History And Physical [id number] [place]. [address] NAME: ИВАН ALBA : 73 STATUS : ADM IN [facility]#: [id number] AGE: 41 ADM/REG DATE : 10/23/16 MR#: [id number] REPORT SERV DATE: 10/24/16 DICTATED BY: GINGER LITTLE DATE: 10/24/16 REPORT STATUS : Draft TRANSCRIBED BY: MODJasper DATE: 10/24/16 DATE OF ADMISSION: 10/23/2016 CHIEF COMPLAINT: A 41-year-old male, presenting with shortness of breath. HISTORY OF PRESENT ILLNESS: The patient's history was obtained through careful interview with the patient coupled with review of [facility] medical records. The patient states that for the last week he has noticed increasing volume overload and shortness of breath. He admits that he "ran out" of some of his medications and does not always take his medications regularly, and he also admits that he has skipped some of his recent doctor visits that had been arranged for him. He describes lower extremity edema, but particular testicular edema with swelling of his testicles to about the size of a large grapefruit. He describes about an 8/10 severity, tightness, pain in that area. He has an increasing cough at night that is nonproductive. He describes dyspnea on exertion, but also orthopnea and paroxysmal nocturnal dyspnea. He has noticed abdominal swelling and tightness, but no abdominal pain. He has gained about 20 pounds over the last month or so. The patient denies any chest pain. He claims his diabetes is under good control. REVIEW OF SYSTEMS: Otherwise, a 14-point review of systems was obtained and was negative. PAST MEDICAL HISTORY: 1. Diabetes. 2. Pacer/AICD placement, followed by Dr. Vazquez. 3. COPD. 4. Systolic congestive heart failure, ejection fraction 30% to 35%, considered nonischemic cardiomyopathy. 5. Schizophrenia. 6. Hypertension. 7. Elevated troponin chronically between 0.06 and 0.11. 8. Testicular varicoceles. PAST SURGICAL HISTORY: Pacer/AICD placement. ALLERGIES: NO KNOWN DRUG ALLERGIES. SOCIAL HISTORY: The patient smokes cigarettes. Drinks alcohol. He has one child, but is not in contact with him. He lives with his mother. 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 History And Physical [id number] [place]. [address] NAME: ИВАН ALBA : 73 STATUS : ADM IN PAT#: [id number] AGE: 41 ADM/REG DATE : 10/23/16 MR#: [id number] REPORT SERV DATE: 10/24/16 DICTATED BY: GINGER LITTLE DATE: 10/24/16 REPORT STATUS : Draft TRANSCRIBED BY: MATT DATE: 10/24/16 FAMILY HISTORY: Father of unknown cause. Mother is healthy. CURRENT MEDICATIONS: Include albuterol inhaler, aspirin 81 mg p.o. daily, Lipitor 20 mg p.o. daily, Lasix 40 mg p.o. daily, Neurontin 300 mg p.o. at bedtime, hydrochlorothiazide 25 mg p.o. daily, Levemir 25 units subcutaneous at bedtime, lisinopril 40 mg p.o. daily, metformin 1000 mg p.o. b.i.d., potassium 20 mEq p.o. daily, Risperdal 2 mg p.o. daily. PHYSICAL EXAMINATION: VITAL SIGNS: Temperature 98.2, pulse 109, blood pressure 162/101, respiratory rate 22, O2 saturation 96% on room air. GENERAL: A chronically ill-appearing male, in evidence of described distress from shortness of breath and discomfort from anasarca. HEENT: Pupils equal, round, and reactive to light. No conjunctival pallor. No scleral icterus. Nares are patent. Oropharynx is clear of obstruction. Moist mucous membranes. NECK: Trachea midline. No thyromegaly. LYMPHATIC: No cervical lymphadenopathy. No supraclavicular lymphadenopathy. RESPIRATORY: The patient has wet rales on examination that extend to about the mid lung symmetrically. No rhonchi. No wheezes. The patient has a labored respiratory effort. CARDIOVASCULAR: Tachycardic, regular rhythm. The patient has anasarca, deeply pitting edema extending from his legs all the way into his groin, and pitting edema of the abdominal wall. ABDOMEN: Central pattern of morbid obesity. Nontender throughout though. No hepatosplenomegaly. DERMATOLOGICAL: Warm and dry extremities. No pallor. No cyanosis. PSYCHIATRIC: Normal affect. Good mood. Alert and oriented x3. LABORATORY DATA: White blood cell count 8.5, hemoglobin 12, hematocrit 36, platelets 311. Sodium 141, potassium 3.6, chloride 107, bicarb 28, BUN 21, creatinine 1.7, glucose 144. Brain natriuretic peptide 974. Troponin 0.08. Urinalysis negative for infection. STUDIES: Chest x-ray by my own evaluation shows pulmonary vascular congestion and cardiomegaly. ASSESSMENT AND PLAN: 1. Systolic congestive heart failure exacerbation. Ejection fraction 30% to 35%. Nonischemic cardiomyopathy. Place on IV Bumex drip. Place on Coreg. Continue OMER inhibitor. 2. Chronic obstructive pulmonary disease. Place on Duo nebulizers. 3. Diabetes. Check hemoglobin A1c. Place on sliding scale insulin. Continue basal insulin. 4. Chronic elevated troponin. No chest pain. 5. Pacer/automatic implantable cardioverter defibrillator. We will interrogate. [facility] History And Physical [address] [address] NAME: ИВАН ALBA : 73 STATUS : ADM IN PAT#: [id number] AGE: 41 ADM/REG DATE : 10/23/16 MR#: [id number] REPORT SERV DATE: 10/24/16 DICTATED BY: GINGER LITTLE DATE: 10/24/16 REPORT STATUS : Draft TRANSCRIBED BY: MATT DATE: 10/24/16 Ginger Little M.D. / [id number] CC: MD Nupur Parker M.D.
--- NOTE | ~2016-10-23 | DS ---
Discharge Summary [facility] [address] [place]. [address] NAME: ИВАН ALBA : 73 STATUS : DIS IN PAT#: [id number] AGE: 41 ADM/REG DATE : 10/23/16 MR#: [id number] REPORT SERV DATE: 10/27/16 DICTATED BY: TONI SPARROW DATE: 10/26/16 REPORT STATUS : Draft TRANSCRIBED BY: MATT DATE: 10/26/16 ADMISSION DATE: 10/23/2016 DISCHARGE DATE: 10/26/2016 DISCHARGE DIAGNOSES: 1. Acute on chronic systolic heart failure. 2. Chronic obstructive pulmonary disease without exacerbation. 3. Insulin-dependent diabetes type 2. 4. Hypertension. 5. Chronic elevated troponin without any evidence of acute coronary syndrome. 6. Question of obstructive sleep apnea, needs outpatient sleep study. 7. Hypomagnesemia. DISCHARGE MEDICATIONS: Include: 1. Aspirin 81 mg p.o. daily. 2. Bumex 2 mg p.o. b.i.d. 3. Carvedilol 3.125 p.o. b.i.d. 4. Neurontin 300 mg p.o. at bedtime. 5. Levemir 25 units subcu at bedtime. 6. Lisinopril 5 mg p.o. daily. 7. Potassium chloride 20 mEq p.o. daily. 8. Risperdal mg p.o. daily. 9. Metformin 1000 mg p.o. b.i.d. 10.Albuterol HFA two puffs inhaled every six hours p.r.n. 11.Lipitor 20 mg p.o. at bedtime. 12.Magnesium oxide 400 mg p.o. b.i.d. DISPOSITION AND FOLLOWUP: The patient medically stable for discharge. Instructed to take all medications as directed. Educated that noncompliance will likely lead to readmission. Instructed to weigh himself daily for close monitoring of possible fluid accumulation. Follow up with primary care physician in one week. HISTORY AND PHYSICAL: Per initial assessment. DISCHARGE VITALS: Temperature 97.4, heart rate 100, blood pressure 153/94, respiratory rate 24, O2 saturation 99 on room air. DISCHARGE LABS: WBC of 7.9, hemoglobin 11.9, hematocrit 37.8, platelets 273. Sodium 145, potassium 3.7, chloride 107, bicarb 32, BUN 23, creatinine 0.95, glucose 105, magnesium 1.6. IMAGING: Chest x-ray, impression, stable cardiomegaly, lungs clear, 10/24/2016. HOSPITAL COURSE: The patient was admitted for further management of acute on chronic systolic heart failure. The patient has an EF of 30% to 35%. Nonischemic cardiomyopathy. Initially, he was placed on IV Bumex and Coreg. OMER inhibitor was decreased. The patient responded well to IV diuretics. The patient eventually was transitioned to p.o. diuretics. Discharge Summary [address] [address] NAME: ИВАН ALBA : 73 STATUS : DIS IN PAT#: [id number] AGE: 41 ADM/REG DATE : 10/23/16 MR#: [id number] REPORT SERV DATE: 10/27/16 DICTATED BY: TONI SPARROW DATE: 10/26/16 REPORT STATUS : Draft TRANSCRIBED BY: MATT DATE: 10/26/16 He was also continued on his home nebulizers and insulin regimen. At discharge, we will change Lasix to Bumex as described above. Start low-dose Coreg and decrease OMER inhibitor. The patient to follow up with primary care physician in one week to recheck blood pressure and renal function with new regimen. Instructed to take all medications as directed. Total time for discharge planning, 35 minutes. DICTATED BY: MD HOMERO Gong/MATT Kyle Saleh MD / [id number] CC: MD Nupur Gong M.D.
[2016-10-23 18:04] LABS: BASOPHILS 0.7 %; BASOPHILS ABSOLUTE 0.06 10/3/uL (0.0-0.16); EOSINOPHILS 4.1 %; EOSINOPHILS ABSOLUTE 0.35 10/3/uL (0.0-0.53); ER CBC TAT 0 Hrs 05 Mins; HEMATOCRIT 36.5 % (40.0-51.0); HEMOGLOBIN 11.9 g/dL (13.6-17.8); IMMATURE GRANULOCYTES 0.2 %; IMMATURE GRANULOCYTES ABSOLUTE 0.02 10/3/uL (0.0-0.11); LYMPHOCYTES 19.9 %; LYMPHOCYTES ABSOLUTE 1.69 10/3/uL (0.67-4.30); MANUAL DIFF NO %; MEAN CORPUS HGB CONC 32.6 g/dL (32.0-36.0); MEAN CORPUSCULAR HEMOGLOB 24.8 pg (26.0-34.0); MEAN CORPUSCULAR VOLUME 76.2 fL (80-100); MEAN PLATELET VOLUME 9.4 fL (9.2-13.0); MONOCYTES 14.6 %; MONOCYTES ABSOLUTE 1.24 10/3/uL (0.21-1.20); NEUTROPHILS 60.5 %; NEUTROPHILS ABSOLUTE 5.15 10/3/uL (2.02-8.40); PLATELET COUNT 311 10/3/uL (150-400); RBC DISTRIBUTION WIDTH 17.5 % (12.0-16.0); RED CELL COUNT 4.79 10/6/uL (4.7-6.1); WHITE BLOOD CELLS 8.5 10/3/uL (4.5-10.5)
[2016-10-23 18:13] LABS: INTERNATIONAL NORMAL RATI 1.5 UNITS (-); PARTIAL THROMBO TIME 33.9 SEC (22.5-37.2); PROTIME (NOT ORD) 17.7 SEC (12.0-14.5)
[2016-10-23 18:20] LABS: BUN (BLOOD UREA NITROGEN) 21 MG/DL (6-23); CALCIUM, SERUM 8.1 MG/DL (8.5-10.4); CHLORIDE, SERUM 107 MMOL/L (96-112); CREATININE 1.17 MG/DL (0.70-1.30); GFR AFRICAN AMERICAN 89 ML/MIN (>=60); GFR NON AFRICAN AMERICAN 76 ML/MIN (>=60); POTASSIUM, SERUM 3.6 MMOL/L (3.5-5.3); SODIUM, SERUM 141 MMOL/L (135-148)
[2016-10-23 18:22] LABS: CHEST PAIN PROFILE TAT 0 Hrs 23 Mins; CO2 (CARBON DIOXIDE) 28 MMOL/L (24-34); GLUCOSE, SERUM 144 MG/DL (60-99); TROPONIN I 0.08 NG/ML (<0.05)
[~2016-10-23 19:16] MED LIST changes: +APRES25 PO; +KLOR-CON M2020 MEQ PO; +L40 PO; +LIPITOR20 PO; +NEUR300 PO
[2016-10-23 20:16] LABS: ASCORBIC ACID (UR NOT ORDER) NEG (NEG); BILIRUBIN, URINE NEGATIVE (NEG); ER URINALYSIS TAT 0 Hrs 10 Mins; KETONE, URINE NEGATIVE (NEG); LEUKOCYTE ESTERASE(NOT OR NEG (NEG); NITRITE (URINE) NEG (NEG); WBC (NOT ORDERED) (RFLEX) < 1 (0-5)
[2016-10-23] MEDS ORDERED: ASAB PO (21:20)
[2016-10-24 05:52] LABS: BASOPHILS 0.9 %; BASOPHILS ABSOLUTE 0.07 10/3/uL (0.0-0.16); EOSINOPHILS ABSOLUTE 0.49 10/3/uL (0.0-0.53); HEMATOCRIT 36.7 % (40.0-51.0); HEMOGLOBIN 11.7 g/dL (13.6-17.8); IMMATURE GRANULOCYTES 0.1 %; IMMATURE GRANULOCYTES ABSOLUTE 0.01 10/3/uL (0.0-0.11); LYMPHOCYTES 17.9 %; LYMPHOCYTES ABSOLUTE 1.47 10/3/uL (0.67-4.30); MEAN CORPUS HGB CONC 31.9 g/dL (32.0-36.0); MEAN CORPUSCULAR HEMOGLOB 24.4 pg (26.0-34.0); MEAN CORPUSCULAR VOLUME 76.5 fL (80-100); MONOCYTES 14.2 %; MONOCYTES ABSOLUTE 1.16 10/3/uL (0.21-1.20); NEUTROPHILS 60.9 %; NEUTROPHILS ABSOLUTE 4.99 10/3/uL (2.02-8.40); PLATELET COUNT 288 10/3/uL (150-400); RBC DISTRIBUTION WIDTH 17.7 % (12.0-16.0); WHITE BLOOD CELLS 8.2 10/3/uL (4.5-10.5)
[2016-10-24 05:55] LABS: INTERNATIONAL NORMAL RATI 1.4 UNITS (-); MANUAL DIFF NO %; PROTIME (NOT ORD) 17.2 SEC (12.0-14.5)
[2016-10-24 05:57] LABS: PARTIAL THROMBO TIME 34.9 SEC (22.5-37.2)
[2016-10-24 06:09] LABS: A/G RATIO 0.7 (0.7-1.9); ALBUMIN 2.7 G/DL (3.5-5.0); BUN (BLOOD UREA NITROGEN) 21 MG/DL (6-23); CALCIUM, SERUM 8.1 MG/DL (8.5-10.4); CHLORIDE, SERUM 106 MMOL/L (96-112); CK-MB 7.2 NG/ML; CO2 (CARBON DIOXIDE) 30 MMOL/L (24-34); CPK 520 U/L (0-200); CREATININE 0.99 MG/DL (0.70-1.30); GFR AFRICAN AMERICAN 108 ML/MIN (>=60); GFR NON AFRICAN AMERICAN 94 ML/MIN (>=60); GLOBULIN 3.7 G/DL (2.5-4.1); GLUCOSE, SERUM 138 MG/DL (60-99); POTASSIUM, SERUM 3.1 MMOL/L (3.5-5.3); SGOT(AST) 49 U/L (5-40); SGPT(ALT) 27 U/L (5-65); SODIUM, SERUM 145 MMOL/L (135-148); TOTAL PROTEIN 6.4 G/DL (6.0-8.5)
[2016-10-24 06:10] LABS: ALKALINE PHOSPHATASE 219 U/L (45-117); CKMB INDEX (NOT ORD) 1.4; TROPONIN I 0.08 NG/ML (<0.05); ULTRASENSITIVE TSH 0.477 MCIU/ML (0.358-3.740)
[2016-10-24 06:25] LABS: B NATRIURETIC PEPTIDE (BNP) 967.7 PG/ML (< 100.0)
[2016-10-24 07:48] LABS: GLYCOHEMOGLOBIN (HbA1c) 6.5 % (4.7-6.1)
[2016-10-25 05:03] LABS: BUN (BLOOD UREA NITROGEN) 21 MG/DL (6-23); CALCIUM, SERUM 8.2 MG/DL (8.5-10.4); CHLORIDE, SERUM 106 MMOL/L (96-112); CO2 (CARBON DIOXIDE) 31 MMOL/L (24-34); CPK 329 U/L (0-200); GFR AFRICAN AMERICAN 95 ML/MIN (>=60); GFR NON AFRICAN AMERICAN 82 ML/MIN (>=60); GLUCOSE, SERUM 124 MG/DL (60-99); SODIUM, SERUM 143 MMOL/L (135-148)
[2016-10-25 05:04] LABS: POTASSIUM, SERUM 3.6 MMOL/L (3.5-5.3); TROPONIN I 0.07 NG/ML (<0.05)
[2016-10-26 04:07] LABS: BASOPHILS 0.6 %; BASOPHILS ABSOLUTE 0.05 10/3/uL (0.0-0.16); EOSINOPHILS 6.3 %; HEMATOCRIT 37.8 % (40.0-51.0); HEMOGLOBIN 11.9 g/dL (13.6-17.8); IMMATURE GRANULOCYTES 0.1 %; IMMATURE GRANULOCYTES ABSOLUTE 0.01 10/3/uL (0.0-0.11); LYMPHOCYTES 22.3 %; LYMPHOCYTES ABSOLUTE 1.76 10/3/uL (0.67-4.30); MANUAL DIFF NO %; MEAN CORPUS HGB CONC 31.5 g/dL (32.0-36.0); MEAN CORPUSCULAR HEMOGLOB 24.2 pg (26.0-34.0); MEAN PLATELET VOLUME 9.5 fL (9.2-13.0); MONOCYTES 12.2 %; MONOCYTES ABSOLUTE 0.96 10/3/uL (0.21-1.20); NEUTROPHILS 58.5 %; NEUTROPHILS ABSOLUTE 4.62 10/3/uL (2.02-8.40); PLATELET COUNT 273 10/3/uL (150-400); RBC DISTRIBUTION WIDTH 17.8 % (12.0-16.0); RED CELL COUNT 4.91 10/6/uL (4.7-6.1); WHITE BLOOD CELLS 7.9 10/3/uL (4.5-10.5)
[2016-10-26 04:19] LABS: BUN (BLOOD UREA NITROGEN) 23 MG/DL (6-23); CALCIUM, SERUM 8.8 MG/DL (8.5-10.4); CHLORIDE, SERUM 107 MMOL/L (96-112); CO2 (CARBON DIOXIDE) 32 MMOL/L (24-34); CREATININE 0.95 MG/DL (0.70-1.30); GFR AFRICAN AMERICAN 114 ML/MIN (>=60); GFR NON AFRICAN AMERICAN 98 ML/MIN (>=60); GLUCOSE, SERUM 104 MG/DL (60-99); POTASSIUM, SERUM 3.7 MMOL/L (3.5-5.3); SODIUM, SERUM 145 MMOL/L (135-148)
[2016-10-26] MEDS ORDERED: PRIN5 PO (10:47)
[2016-10-26] MEDS ORDERED: BUM2 PO (10:51)
[2016-10-26] MEDS ORDERED: COREG25 PO (10:52)
[2016-10-26] MEDS ORDERED: LISINOPRIL40 MG PO (10:52)
[2016-10-26] MEDS ORDERED: MAGOX4 PO (10:53)
[2017-01-02] MEDS ORDERED: L20 PO (12:25)
[2017-01-02] MEDS ORDERED: MONOKET20 PO (12:26)
[2017-01-05] MEDS ORDERED: COREG6 PO (12:50)
[2017-01-05] MEDS ORDERED: PRIN10 PO (12:51)
== END 2016-10-26 17:52 | disposition home or self-care (01) | DRG 292 ==
LOC: ER 19:16 → 6NO 20:31
PROVIDERS: Family Medicine; Hospitalist; Internal Medicine; Specialist
DX: I11.0 Hypertensive heart disease with heart failure (principal); Z68.42 Body mass index [BMI] 45.0-49.9, adult; I42.9 Cardiomyopathy, unspecified; E11.65 Type 2 diabetes mellitus with hyperglycemia; I50.23 Acute on chronic systolic (congestive) heart failure; E83.42 Hypomagnesemia; F20.9 Schizophrenia, unspecified; J44.9 Chronic obstructive pulmonary disease, unspecified; G47.33 Obstructive sleep apnea (adult) (pediatric); E66.9 Obesity, unspecified; F17.210 Nicotine dependence, cigarettes, uncomplicated; I86.1 Scrotal varices; R78.89 Finding of other specified substances, not normally found in blood; Z95.810 Presence of automatic (implantable) cardiac defibrillator; Z79.4 Long term (current) use of insulin; Z91.14 Patient's other noncompliance with medication regimen; Z79.82 Long term (current) use of aspirin
CPT/HCPCS: 71010; 71020; 80048; 80053; 81001; 82550; 82553; 82962; 83036; 83735; 83880; 84132; 84443; 84484; 85025; 85610; 85730; 93005; 94640; 96374; 99285; A9270-GY